=== PATIENT | male | born 1975 ===

== ENCOUNTER 2024-04-30 09:33 | Outpatient (REF) | payer OTHER, SELFPAY ==
--- NOTE | ~2024-04-30 | XR_ITS ---
EXAMINATION: XR KNEE, LEFT CLINICAL INFORMATION: Pain in the left knee COMPARISON: None available. TECHNIQUE: Three views of the left knee. FINDINGS: Tiny marginal osteophytes about the lateral patella joint space normal indicative of minimal patellofemoral arthrosis. Medial and lateral compartments are normal. Surrounding bone and soft tissues are unremarkable. No effusion. XR/XR knee LT 3V IMPRESSION: Minimal patellofemoral arthrosis.
== END 2024-04-30 09:34 | disposition home or self-care (01) ==
LOC: HO.HOSX 09:33
PROVIDERS: Visit Provider Orthopaedic Surgery
DX: M25.562 Pain in left knee (principal)
CPT/HCPCS: 73562

== ENCOUNTER 2024-04-30 10:02 | Outpatient (AMB) | payer OTHER, SELFPAY ==
--- NOTE | 2024-04-30 10:04 | MHC.OFFVIS ---
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 The patient underwent left knee arthroscopic surgery in 2020. He got very good relief from that surgery initially. The patient states that approximately 1 year ago he twisted his left knee and felt a ?ripping sensation? along the medial aspect of his knee. Since that time his symptoms have gotten worse. He has failed the last 6 weeks of conservative treatment. He has done physical therapy exercises which aggravated his pain. He has had cortisone injections in the past which gave him no relief. Has also tried Tylenol and anti-inflammatory medicines which gave him minimal relief. He states that his left knee will give out several times per day. Allergies erythromycin base [From Erythrocin] Allergy (Intermediate, Verified 04/30/24 10:14) Hives metaproterenol [From Alupent] Allergy (Mild, Verified 04/30/24 10:14) Hives Medication List - Last Reconciled 04/30/24 by Oscar Decker MD No Known Home Meds Physical Exam Vital Signs: BMI result Body Mass Index 28.3 Const Other: Well-nourished well-developed very friendly male awake alert and oriented x3 in no acute distress Extrem Other: Bilateral lower extremity examination shows good capillary refill, no skin lesions noted, normal sensation light touch Left knee examination shows a minimal effusion, minimal crepitus with range of motion, tenderness along his medial joint line, positive Ahmet's test, no instability Results Reviewed Results Reviewed: Standing full weight-bearing x-rays of the patient's left knee show mild diffuse joint space narrowing, no acute bony abnormalities Assessment & Plan Assessment & Plan (1) Left knee pain: Code(s): M25.562 - Pain in left knee Category: Medical Plan Mr. Tran presents with recurrent left knee pain and mechanical symptoms most likely due to a recurrent medial meniscus tear. Thus, I will send the patient for an MRI of his left knee for further evaluation. I will contact him by phone once the MRI results are available. He will call me prior to that time should his symptoms worsen in any way. Feel free to call me at any time should questions regarding his orthopedic management arise. I spent 21 minutes in reviewing the patient's records and imaging studies, seeing the patient and documenting in the medical record. Orders: Orders XR knee LT 3V 04/30/24 M25.562 - Pain in left knee MR knee LT wo con 04/30/24 M25.562 - Pain in left knee Coding Level of Care Code Est Pt Level 3 (15683) Diagnoses Left knee pain M25.562
[2024-04-30 10:12] VITALS: BMI 28.3
== END 2024-04-30 10:26 | disposition home or self-care (01) ==
PROVIDERS: Visit Provider Orthopaedic Surgery
DX: M25.562 Pain in left knee (principal)
CPT/HCPCS: 99213